=== PATIENT | female | born 1990 | race Caucasian/White ===

== ENCOUNTER 2020-10-31 07:04 | Inpatient (IN) ==
[2020-10-31] MEDS ORDERED: OXYTOCIN 30 UNITS/500 ML BAG IV PRN ×2 (07:38→16:52)
[2020-10-31] MEDS: LACTATED RINGER'S 1,000 ML IV PRN ×3 (08:06→13:49)
[2020-10-31 08:36] LABS: Mean Corpuscular Hemoglobin 30.2 pg (25-34); Mean Corpuscular Hgb Conc 33.3 g/dL (32-36); Mean Corpuscular Volume 90.5 fL (80-100); Mean Platelet Volume 11.7 fL (7.4-10.4); Platelet Count 219 K/uL (130-400); RDW Standard Deviation 49.1 fL (36.4-46.3); Red Blood Count 4.31 M/uL (4.2-5.4); White Blood Count 15.73 K/uL (4.8-10.8)
[2020-10-31] MEDS ORDERED: ePHEDrine sulfate 50 MG/ML AMP ONE (08:40)
[2020-10-31] MEDS ORDERED: BUPIVACAINE 0.25% 30 ML VIAL ONE (08:40)
[2020-10-31] MEDS ORDERED: SODIUM CHLORIDE 0.9% INJ 10 ML VIAL ONE (08:40)
[2020-10-31] MEDS ORDERED: fentaNYL citrate 100 MCG/2 ML VIAL ONE (08:41)
[2020-10-31] MEDS ORDERED: fentaNYL 2MCG/ML ROPIVACAINE 1.25MG/ML 100 ML BAG EPI ONE (08:41)
[2020-10-31] MEDS ORDERED: diphenhydrAMINE 50 MG/ML VIAL IV PRN (09:08)
[2020-10-31] MEDS ORDERED: ONDANSETRON INJ 2 MG/ML 2 ML VIAL IV PRN (09:08)
[2020-10-31] MEDS ORDERED: ePHEDrine sulfate 50 MG/ML AMP IV PRN (09:08)
[2020-10-31] MEDS ORDERED: NALOXONE HCL 1 MG in SODIUM CHLORIDE 0.9% 1000ML 1,000 ML IV PRN (09:08)
[2020-10-31] MEDS ORDERED: NALBUPHINE HCL INJ 10 MG/ML AMP IV PRN (09:08)
[2020-10-31] MEDS ORDERED: fentaNYL 2MCG/ML ROPIVACAINE 1.25MG/ML 100 ML BAG EPI PRN (09:08)
[2020-10-31] MEDS ORDERED: NALOXONE HCL 0.4 MG/1 ML VIAL/CARP IV PRN (09:08)
--- NOTE | 2020-10-31 09:16 | Anesthesiology Consultation ---
Date of Service October 31, 2020 Assessment & Plan Chart Review Chart Review: Patient NOT seen in Pre Admission Testing and Acceptable Risk for Labor Epidural Consults Requested none ASA ASA2 Proposed Anesthesia Anesthesia Type: Labor Epidural and CSE Risk / Benefits Reviewed With: PT / POA / Parent / Guardian, Accepts Plan and Informed Consent Obtained History Height/Weight Height: 5 ft 5 in Weight: 81.647 kg Allergies Allergy/AdvReac Type Severity Reaction Status Date / Time amoxicillin Allergy Rash Verified 10/31/20 08:11 Medications Home Medications Medication Instructions Recorded Confirmed Last Taken ferrous sulfate 325 mg (65 mg 325 mg PO DAILY 10/31/20 10/31/20 Unknown iron) tablet (iron) prenat.vits,lily,[id number] 1 tab PO DAILY 10/31/20 10/31/20 Unknown Active Medications Generic Name Dose Route Start Last Admin Trade Name Freq PRN Reason Stop Dose Admin Lactated Ringer's 1,000 mls @ 125 mls/hr 10/31/20 07:38 10/31/20 09:11 Lr IV 11/02/20 07:37 999 mls/hr .Q8H PRN Infusion L&D Protocol Protocol NPO Date Last Intake of Fluids: 10/31/20 Time Last Intake of Fluids: 08:00 Date Last Intake of Solids: 10/30/20 Time Last Intake of Solids: 19:30 Past Medical History Medical History (Updated 10/31/20 @ 07:19 by Zaina Martinez RN) No pertinent past medical history Exercise / Class Metabolic Activity II 4-5 Yardwork/Stairs/Walk up hill Past Anesthesia History No Hx of Anesthesia Complications and No Family Hx of Anesthesia Complications History of PONV No Hx of PONV and No Hx of Motion Sickness Social History Smoking Status: Never smoker Hx Alcohol Use: No Hx Substance Use: No substance use type: does not use Review of Systems no chest pain or sob Physical Exam Vital Signs Last Vital Signs Temp 36.7 C 10/31/20 07:18 Pulse 82 10/31/20 09:11 Resp 20 10/31/20 07:18 BP 126/74 10/31/20 07:18 Pulse Ox 99 10/31/20 09:11 ENMT Mouth: no TMJ abnormality Thyromental Distance: > or= 3.5 Finger Breadths Mallampati Class: II Neck normal visual inspection Respiratory normal respiratory effort Auscultation: lungs clear to auscultation bilaterally Cardiovascular Rate/Rhythm: regular rate and regular rhythm Musculoskeletal Spine: normal cervical ROM Neurologic moves all extremities Psychiatric Orientation: alert and oriented x 3 Testing Laboratory Results 10/31/20 08:26
--- NOTE | 2020-10-31 13:57 | History & Physical Report ---
Date of Service October 31, 2020 Assessment & Plan (1) SROM (spontaneous rupture of membranes): Plan: continue in labor Admission and Anticipated Discharge Date Admission Date: October 31, 2020 History of Present Illness Chief Complaint: erm with SROM in labor Primary Care Provider: [facility] PCP 30 F P0000 at 39.1 weeks with SROM this AM with meconium stained fluid. GBS is negative. Covid testing is negative. Allergies Allergy/AdvReac Type Severity Reaction Status Date / Time amoxicillin Allergy Rash Verified 10/31/20 08:11 Home Medications Medication Instructions Recorded Confirmed Type ferrous sulfate 325 mg (65 mg 325 mg PO DAILY 10/31/20 10/31/20 History iron) tablet (iron) prenat.vits,lily,[id number]-[id number] 1 tab PO DAILY 10/31/20 10/31/20 History Patient History Medical History No pertinent past medical history Social History Smoking Status: Never smoker Hx Alcohol Use: No Hx Substance Use: No Preferred Language: Bhutanese Beliefs That Will Affect Care: None marital status: Current Living Situation: Spouse Other Information That Helps Us Care for You: No Feels Safe at Home: Yes Safety Concerns: Feels Safe At This Time Assistive Devices: None OB History primigravida Review of Systems All systems reviewed & are unremarkable except as noted in HPI & below Physical Exam Constitutional: WD/WN, vitals as above comfortable Eyes: PERRL, conjunctivae normal, anicteric sclerae Respiratory: normal respiratory effort, lungs clear to auscultation Results & Data ([facility]) Vital Signs (Past 12 Hours) Vital Signs Temp Pulse Resp BP Pulse Ox 10/31/20 13:51 93 H 99 10/31/20 13:50 96 H 132/79 10/31/20 13:46 101 H 99 10/31/20 13:41 82 98 10/31/20 13:36 87 99 10/31/20 13:33 96 H 126/71 10/31/20 13:31 89 98 10/31/20 13:26 78 99 10/31/20 13:21 78 99 10/31/20 13:18 72 126/74 10/31/20 13:16 87 98 10/31/20 13:11 94 H 98 10/31/20 13:06 89 99 10/31/20 13:04 83 123/69 10/31/20 13:01 92 H 99 10/31/20 12:57 37.2 C 16 10/31/20 12:56 86 96 10/31/20 12:51 88 99 10/31/20 12:48 69 123/70 10/31/20 12:46 79 98 10/31/20 12:41 70 97 10/31/20 12:36 78 97 10/31/20 12:33 73 122/70 10/31/20 12:31 90 97 10/31/20 12:30 20 10/31/20 12:26 69 97 10/31/20 12:21 78 98 10/31/20 12:18 71 123/67 10/31/20 12:16 72 96 10/31/20 12:11 73 97 10/31/20 12:06 69 97 10/31/20 12:03 76 118/66 10/31/20 12:01 77 98 10/31/20 11:56 79 97 10/31/20 11:51 81 98 10/31/20 11:49 75 121/58 L 10/31/20 11:46 72 97 10/31/20 11:41 81 97 10/31/20 11:36 78 97 10/31/20 11:34 78 119/66 10/31/20 11:31 82 97 10/31/20 11:26 81 97 10/31/20 11:21 75 96 10/31/20 11:19 77 116/58 L 10/31/20 11:16 75 96 10/31/20 11:11 83 97 10/31/20 11:06 81 97 10/31/20 11:02 36.5 C 16 10/31/20 11:01 83 97 10/31/20 10:56 67 96 10/31/20 10:51 61 97 10/31/20 10:49 67 116/56 L 10/31/20 10:46 70 99 10/31/20 10:41 62 98 10/31/20 10:36 64 97 10/31/20 10:33 68 115/56 L 10/31/20 10:31 60 97 10/31/20 10:26 63 97 10/31/20 10:21 73 96 10/31/20 10:19 68 118/65 10/31/20 10:16 82 98 10/31/20 10:11 63 97 10/31/20 10:06 70 96 10/31/20 10:03 64 115/58 L 10/31/20 10:01 79 97 10/31/20 09:56 74 97 10/31/20 09:51 75 96 10/31/20 09:46 62 106/59 L 95 10/31/20 09:41 61 103/56 L 96 10/31/20 09:36 67 99 10/31/20 09:35 70 109/53 L 10/31/20 09:32 36.8 C 74 20 139/60 10/31/20 09:31 73 100 10/31/20 09:29 77 129/68 10/31/20 09:26 78 100 10/31/20 09:21 81 100 10/31/20 09:16 87 100 10/31/20 09:11 82 99 10/31/20 07:18 36.7 C 81 20 126/74 Code Status & VTE Plan VTE Prophylaxis Plan VTE Prophylaxis will be ordered: No Monitoring External Monitor FHT Cat 1
--- NOTE | 2020-10-31 16:41 | Delivery Summary ---
Vaginal Delivery Summary Date of Service October 31, 2020 Vaginal Delivery Summary Delivery Note live female DONALD over intact perineum with delayed cord clamping and Apgars 9/9 weight pending. Cord blood obtained followed by spontaneous delivery of intact placenta. No tears. EBL 250 ml. Final sponge and instrument count are correct. Mom and baby stable.
[2020-10-31] MEDS ORDERED: bisacodyL 10 MG SUPP PR PRN (16:52)
[2020-10-31] MEDS ORDERED: BENZOCAINE 20% AER SPR 82.5 GM CAN EXT PRN (16:52)
[2020-10-31] MEDS ORDERED: DIPHTHERIA/TETANUS/PERTUSSIS 0.5 ML SYR/VIAL IM ONE (16:52)
[2020-10-31] MEDS ORDERED: SUPERCREAM 0.870% 15 GM JAR EXT PRN (16:52)
[2020-10-31] MEDS ORDERED: ACETAMINOPHEN 325 MG TAB PO PRN (16:52)
[2020-10-31] MEDS ORDERED: IBUPROFEN 600 MG TAB PO PRN (16:52)
[2020-10-31] MEDS ORDERED: HYDROCORTISONE ACETATE 25 MG SUPP PR PRN (16:52)
--- NOTE | 2020-10-31 17:29 | Anesthesia Procedure Note ---
Date of Service October 31, 2020 Anesthesia Post Epidural Note Vital Signs Vital Signs: Temp Pulse Resp BP Pulse Ox 37.2 C 91 H 18 110/64 93 10/31/20 15:03 10/31/20 17:18 10/31/20 15:03 10/31/20 17:18 10/31/20 16:32 Notes Mental Status: alert / awake / arousable and participated in evaluation Nausea / Vomiting: adequately controlled Pain: adequately controlled Airway Patency, RR, SpO2: stable & adequate BP & HR: stable & adequate Hydration State: stable & adequate Neuraxial Anesthesia: was administered and sensory block is resolving Anesthetic Complications: no major complications apparent and Pt Satisfied with anesthetic care Epidural: Removed without complications and With tip intact
[2020-10-31] MEDS: DOCUSATE SODIUM 100 MG CAP PO SCH (20:48)
[2020-11-01 06:59] LABS: Hematocrit (blood only) 29.7 % (37-47); Hemoglobin 9.8 g/dL (12.0-16.0); Mean Corpuscular Hemoglobin 29.6 pg (25-34); Mean Corpuscular Volume 89.7 fL (80-100); Mean Platelet Volume 11.9 fL (7.4-10.4); Nucleated RBC # (auto) 0.03 K/uL (0-0); Nucleated RBC % (auto) 0.2 %; Platelet Count 189 K/uL (130-400); RDW Coefficient of Variation 15.3 % (11.5-14.5); Red Blood Count 3.31 M/uL (4.2-5.4); White Blood Count 19.18 K/uL (4.8-10.8)
--- NOTE | 2020-11-01 07:38 | Obstetrical Progress Note ---
Date of Service November 01, 2020 Assessment & Plan Admission and Anticipated Discharge Date Admission Date: October 31, 2020 Subjective Patient is seen and examined. She feels well, no complaints. Ambulating without dizziness Voiding without difficulty Tolerating regular diet with out N&V Bleeding is minimal No fever/ chills/ CP/ SOB/ N&V/ Leg pain Breast feeding without problems Lab Results 10/31/20 10/31/20 10/31/20 Range/Units 07:42 07:42 08:26 WBC 15.73 H (4.8-10.8) K/uL RBC 4.31 (4.2-5.4) M/uL Hgb 13.0 (12.0-16.0) g/dL Hct 39.0 (37-47) % MCV 90.5 (80-100) fL MCH 30.2 (25-34) pg MCHC 33.3 (32-36) g/dL RDW Std Deviation 49.1 H (36.4-46.3) fL RDW Coeff of Magalys 15.0 H (11.5-14.5) % Plt Count 219 (130-400) K/uL MPV 11.7 H (7.4-10.4) fL Absolute Nucleated RBC (0-0) K/uL Nucleated RBC % (auto) % COVID-19 Eval Order Covid19 [facility]Now [facility] SARS-CoV-2, RNA, NAAT NEGATIVE (NEGATIVE) 11/01/20 Range/Units 05:56 WBC 19.18 H (4.8-10.8) K/uL RBC 3.31 L (4.2-5.4) M/uL Hgb 9.8 L D (12.0-16.0) g/dL Hct 29.7 L (37-47) % MCV 89.7 (80-100) fL MCH 29.6 (25-34) pg MCHC 33.0 (32-36) g/dL RDW Std Deviation 50.0 H (36.4-46.3) fL RDW Coeff of Magalys 15.3 H (11.5-14.5) % Plt Count 189 (130-400) K/uL MPV 11.9 H (7.4-10.4) fL Absolute Nucleated RBC 0.03 H (0-0) K/uL Nucleated RBC % (auto) 0.2 % COVID-19 Eval Order SARS-CoV-2, RNA, NAAT (NEGATIVE) Vital Signs Temp Pulse Resp BP Pulse Ox 11/01/20 03:05 37.0 C 76 18 122/73 97 10/31/20 23:55 36.9 C 73 20 113/71 97 PE: General: Alert, orientedx3, NAD Abd: soft, NT, fundus firm, below Umbilicus Perineum intact, Lochia rubra minimal Ext; NT, no edema AP: 30 yo s/p , ppd# 1 VSS Afebrile doing well Continue routine care All questions were answered D/C home tomorrow Results & Data ([facility]) Vital Signs (Past 12 Hours) Vital Signs Temp Pulse Resp BP Pulse Ox 11/01/20 03:05 37.0 C 76 18 122/73 97 10/31/20 23:55 36.9 C 73 20 113/71 97
[2020-11-01] MEDS: FERROUS SULFATE 325 MG TAB PO SCH (08:33)
[2020-11-01] MEDS: PRENATAL VITAMIN 1 TAB PO SCH (08:34)
[2020-11-01] MEDS: DOCUSATE SODIUM 100 MG CAP PO SCH ×2 (08:34→20:49)
[2020-11-01] MEDS ORDERED: NON-FORMULARY MEDICATION (Prenat.Vits,Cal,Min-Iron-Folic Tablet) PO SCH (09:00)
[2020-11-01] MEDS ORDERED: NON-FORMULARY MEDICATION (Ferrous Sulfate [Iron] 325 mg (65 mg iron) Tablet) PO SCH (09:00)
[2020-11-01] MEDS ORDERED: bisacodyL 5 MG TABEC PO SCH (20:00)
[2020-11-02 07:13] LABS: Basophils # (auto) 0.03 K/uL (0-0.2); Basophils % (auto) 0.2 %; Eosinophils # (auto) 0.17 K/uL (0-0.5); Eosinophils % (auto) 1.2 %; Hematocrit (blood only) 29.1 % (37-47); Hemoglobin 9.4 g/dL (12.0-16.0); Immature Granulocytes % (auto) 1.4 %; Lymphocytes # (auto) 2.91 K/uL (1.2-3.4); Mean Corpuscular Hemoglobin 29.5 pg (25-34); Mean Corpuscular Hgb Conc 32.3 g/dL (32-36); Mean Corpuscular Volume 91.2 fL (80-100); Mean Platelet Volume 10.9 fL (7.4-10.4); Monocytes # (auto) 1.03 K/uL (0.11-0.59); Monocytes % (auto) 7.1 %; Neutrophils # (auto) 10.24 K/uL (1.4-6.5); Neutrophils % (auto) 70.1 %; Nucleated RBC # (auto) 0.04 K/uL (0-0); Nucleated RBC % (auto) 0.2 %; Platelet Count 222 K/uL (130-400); RDW Coefficient of Variation 15.5 % (11.5-14.5); RDW Standard Deviation 51.9 fL (36.4-46.3); Red Blood Count 3.19 M/uL (4.2-5.4); White Blood Count 14.58 K/uL (4.8-10.8)
--- NOTE | 2020-11-02 08:17 | Obstetrical Progress Note ---
Date of Service November 02, 2020 Subjective Ambulation: ambulating normally Voiding: no voiding problems Passing Gas:: Yes Diet Tolerance:: regular diet Lochia:: Small Feeding Type:: bottle feeding Current Pain Level(1-10): 0 doing well Physical Exam Constitutional WD/WN, vitals as above comfortable abdomen soft and non-tender fundus firm no edema neg Bridgett's for d/c today Results & Data ([facility]) Vital Signs (Past 12 Hours) Vital Signs Temp Pulse Resp BP 11/01/20 23:25 36.9 C 76 18 112/72 Laboratory Results Laboratory Results - last 72 hr 10/31/20 10/31/20 10/31/20 07:42 07:42 08:26 WBC 15.73 H RBC 4.31 Hgb 13.0 Hct 39.0 MCV 90.5 MCH 30.2 MCHC 33.3 RDW Std Deviation 49.1 H RDW Coeff of Magalys 15.0 H Plt Count 219 MPV 11.7 H Immature Gran % (Auto) Neut % (Auto) Lymph % (Auto) Kings % (Auto) Eos % (Auto) Baso % (Auto) Neut # (Auto) Lymph # (Auto) Kings # (Auto) Eos # (Auto) Baso # (Auto) Immature Gran # (Auto) Absolute Nucleated RBC Nucleated RBC % (auto) COVID-19 Eval Order Covid19 [facility]Now [facility] SARS-CoV-2, RNA, NAAT NEGATIVE 11/01/20 11/02/20 05:56 06:58 WBC 19.18 H 14.58 H RBC 3.31 L 3.19 L Hgb 9.8 L D 9.4 L Hct 29.7 L 29.1 L MCV 89.7 91.2 MCH 29.6 29.5 MCHC 33.0 32.3 RDW Std Deviation 50.0 H 51.9 H RDW Coeff of Magalys 15.3 H 15.5 H Plt Count 189 222 MPV 11.9 H 10.9 H Immature Gran % (Auto) 1.4 Neut % (Auto) 70.1 Lymph % (Auto) 20.0 Kings % (Auto) 7.1 Eos % (Auto) 1.2 Baso % (Auto) 0.2 Neut # (Auto) 10.24 H Lymph # (Auto) 2.91 Kings # (Auto) 1.03 H Eos # (Auto) 0.17 Baso # (Auto) 0.03 Immature Gran # (Auto) 0.20 H Absolute Nucleated RBC 0.03 H 0.04 H Nucleated RBC % (auto) 0.2 0.2 COVID-19 Eval Order SARS-CoV-2, RNA, NAAT
[2020-11-02] MEDS: DOCUSATE SODIUM 100 MG CAP PO SCH (08:38)
[2020-11-02] MEDS: FERROUS SULFATE 325 MG TAB PO SCH (08:38)
[2020-11-02] MEDS: PRENATAL VITAMIN 1 TAB PO SCH (08:38)
== END 2020-11-02 13:25 | disposition home or self-care (01) | DRG 807 ==
LOC: OPB 07:04 → 4S1 07:38 → 4S2 19:24